=== PATIENT | female | born 1985 | race Caucasian/White ===

== ENCOUNTER 2023-01-28 07:14 | Inpatient (IN) | payer OTHER ==
[~2023-01-28] VITALS: Ht 157.5 cm; Wt 79.5 kg
[2023-01-28] VITALS (24 sets, daily range): BP systolic 87–143; BP diastolic 46–82
[2023-01-28 08:10] LABS: BASOPHILS ABSOLUTE AUTO 0.02 K/mm3 (0.00-0.23); BASOPHILS PERCENT AUTO 0 % (0-2); EOSINOPHILS ABSOLUTE AUTO 0.13 K/mm3 (0.00-0.68); EOSINOPHILS PERCENT AUTO 1 % (0-6); Hematocrit 35.2 % (33.0-51.0); Hemoglobin 11.6 g/dL (11.5-16.0); IMMATURE GRAN ABSOLUTE AUTO 0.04 K/mm3 (0.00-0.10); IMMATURE GRAN PERCENT AUTO 0 % (0-1); LYMPHOCYTES ABSOLUTE AUTO 1.78 K/mm3 (0.84-5.20); LYMPHOCYTES PERCENT AUTO 18 % (21-46); MONOCYTES PERCENT AUTO 6 % (4-13); Mean Corpuscular HGB 29.8 pg (26.0-34.0); Mean Corpuscular Volume 91 fL (80-100); Mean Platelet Volume 10.1 fL (9.1-12.4); NEUTROPHILS ABSOLUTE AUTO 7.08 K/mm3 (1.96-9.15); NEUTROPHILS PERCENT AUTO 74 % (41-73); Platelet Count 180 K/mm3 (150-400); RDW Standard Deviation 53.1 fL (35.1-46.3); Red Blood Cell Count 3.89 M/mm3 (3.80-5.20); White Blood Cell Count 9.65 K/mm3 (4.00-11.30)
[2023-01-29 06:18] VITALS: BP 98/52
[2023-01-29 08:22] VITALS: BP 98/54
--- NOTE | 2023-01-29 08:37 | NUR ---
ASSUMED CARE OF PT AT 0700. REPORT RECIEVED FROM RUBEN RODRIGUEZ. PT AND ARE SLEEPING AT THIS TIME, MOTHER AWAKENS WHEN I ROUND AND REQUESTS SOMETHING FOR PAIN FOR CRAMPING. NO OTHER COMPLAINTS OR NEEDS IDENTIFIED AT THIS TIME. DISCUSSED POC.
[2023-01-29 12:35] VITALS: BP 99/54
[2023-01-29 14:24] VITALS: BP 110/61
--- NOTE | 2023-01-29 14:57 | NUR ---
PARENTS GIVEN WRITTEN AND VERBAL DC INSTRUCTIONS. WILL FOLLOW UP TUESDAY AT 11AM WITH FLEX PRATHER RN. JERONIMO PAYNE WILL FOLLOW UP WITH STEPHANIE WITHIN 2 WEEKS OR SOONER IF NEEDED. DEPRESSION SCREEN 2. IV DCD. DISCHARGED HOME WITH AND AT SIDE.
== END 2023-01-29 15:00 | disposition home or self-care (01) | DRG 807 ==
LOC: OBS 07:14 → BC 07:16 → OBS 07:28 → BC 07:29
PROVIDERS: ADMIT Advanced Practice Midwife
PROC: 10E0XZZ Delivery of Products of Conception, External Approach (ICD-10-PCS; principal; 2023-01-28)
PROC: 0KQM0ZZ Repair Perineum Muscle, Open Approach (ICD-10-PCS; 2023-01-28)
PROC: 10907ZC Drainage of Amniotic Fluid, Therapeutic from Products of Conception, Via Natural or Artificial Opening (ICD-10-PCS; 2023-01-28)
PROC: 3E033VJ Introduction of Other Hormone into Peripheral Vein, Percutaneous Approach (ICD-10-PCS; 2023-01-28)
PROC: 3E0R3BZ Introduction of Anesthetic Agent into Spinal Canal, Percutaneous Approach (ICD-10-PCS; 2023-01-28)
PROC: 00HU33Z Insertion of Infusion Device into Spinal Canal, Percutaneous Approach (ICD-10-PCS; 2023-01-28)
DX: O48.0 Post-term pregnancy (principal); Z37.0 Single live birth; O24.420 Gestational diabetes mellitus in childbirth, diet controlled; O99.02 Anemia complicating childbirth; D64.9 Anemia, unspecified; O70.1 Second degree perineal laceration during delivery; O77.0 Labor and delivery complicated by meconium in amniotic fluid; Z3A.40 40 weeks gestation of pregnancy
CPT/HCPCS: 36415; 51702; 82947; 85025; 86850; 86900; 86901; A9270; J1885; J2405; J3010; J7120